=== PATIENT | female | born 1975 | race Caucasian/White ===

== ENCOUNTER 2021-05-01 15:46 | Emergency (ER) | payer BC ==
[~2021-05-01] VITALS: Ht 165.1 cm; Wt 77.1 kg
[~2021-05-01 15:46] MED LIST: C COMPLEX1000 M1 PO; CLIMARA1 EACH PO; DOCU100 PO; DULCOLAX400 MG/51 PO; IBUP400 PO; MULVITA PO; NAPR220; PROM12.5S PO; Percocet 5-3251 EACH PO; SENNA LAXATIVE8.6 MG PO; SIME80CH PO; THERA-D2000 UNIT PO; ZINC50 M3 PO
== END 2021-05-01 16:16 | disposition home or self-care (01) ==
LOC: ER 15:46
DX: S01.01XA Laceration without foreign body of scalp, initial encounter (principal); Z79.899 Other long term (current) drug therapy; Z87.891 Personal history of nicotine dependence; W18.09XA Striking against other object with subsequent fall, initial encounter
CPT/HCPCS: 12002; 99282-25

== ENCOUNTER → 2023-03-14 | Outpatient (CLI) | payer BC | END | disposition home or self-care (01) | LOC: PLD 11:57 → LAB SHORT 11:57 | DX: D36.11 Benign neoplasm of peripheral nerves and autonomic nervous system of face, head, and neck (principal) | CPT/HCPCS: 88305 ==